=== PATIENT | female | born 1985 | race Caucasian/White ===

== ENCOUNTER 2024-04-07 10:50 | Outpatient (OUT) | payer OTHER, SELFPAY ==
--- NOTE | 2024-04-07 | XR_ITS ---
[facility] [id number] Patient Name: ISAAC BRITO MRN: [id number] date: 1985 Sex: F Assigned Patient Location: Current Patient Location: Accession/Order Number: [id number] Exam Date: 04/07/2024 11:36 Report Date: 04/12/2024 12:04 At the request of: OSCAR CISSE Procedure: XR foot RT min 3V PROCEDURE: XR foot RT min 3V HISTORY: RIGHT FOOT PAIN [; lump on bottom of foot; calcaneal pain COMPARISON: None. FINDINGS: BONES: Small calcaneal plantar spur and small degenerative enthesophyte at Achilles tendon insertion into the calcaneus. No fracture, acute abnormality, or significant arthropathy. SOFT TISSUES:No visible soft tissue swelling. EFFUSION:None visible. OTHER: Negative. XR/XR foot RT min 3V IMPRESSION: 1. Mild degenerative enthesopathic spurring of the calcaneus. Otherwise unremarkable foot. Electronically authenticated by: FORTUNATO PETTIT Date: 04/12/2024 12:04
== END 2024-04-07 10:51 | disposition home or self-care (01) ==
PROVIDERS: Visit Provider Podiatrist Foot & Ankle Surgery
DX: M79.671 Pain in right foot (principal); M77.31 Calcaneal spur, right foot
CPT/HCPCS: 73630

== ENCOUNTER 2024-04-19 14:25 | Outpatient (OUT) | payer OTHER, SELFPAY ==
--- NOTE | 2024-04-19 | MR_ITS ---
[facility] [id number] Patient Name: ISAAC BRITO MRN: [id number] date: 1985 Sex: F Assigned Patient Location: MRI Current Patient Location: Accession/Order Number: [id number] Exam Date: 04/19/2024 15:12 Report Date: 04/22/2024 08:42 At the request of: LAXMI BARAJAS Procedure: MR foot RT wo/w con EXAM: MR foot RT wo/w con REASON FOR EXAM: NEOPLASM UNKNOWN ORIGIN, SOFT TISSUE MASS. TECHNIQUE: Multiplanar, multisequence imaging of the right foot was performed without contrast COMPARISON: Radiographs 04/07/2024. FINDINGS: Along the plantar aspect of the midfoot at the palpable area concern, there is focal subcutaneous or fascial mass, which measures 0.9 x 1.2 cm. There does appear to be some heterogeneous enhancement. This appears to be arising from the plantar fascia and potentially reflects focal fibromatosis. No other similar-appearing lesion identified. No other abnormal enhancement is evident. The bone marrow signal is without fracture or osteonecrosis. The midfoot is congruent. Lisfranc ligament is intact. The visualized ankle tendons are without acute abnormality. No evidence of acute ligamentous injury. Mild second intermetatarsal web space bursitis is present. A discrete neuroma is not evident. MR/MR foot RT wo/w con IMPRESSION: 1. 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 2. No acute osseous, ligamentous or tendinous injury identified. Electronically authenticated by: JUDY ARREOLA Date: 04/22/2024 08:42
--- OUTSIDE RECORDS SUMMARY | 2024-04-19 14:29 | XMS_ITS | CCD ---
Author Organization [facility] Care Team Providers Care Suspender Cutter Name Role Phone Bryanna Zarate Primary Care Physician [phone] DO Farooq Jones Attending Provider Nayely Davila Unavailable Pamella Stallings Unavailable Gabo Hooper Unavailable LOGAN ROSALES Attending Unavailable LOGAN ROSALES Referring Unavailable Farooq Jones Attending Unavailable Farooq Jones Admitting Unavailable NO FAMILY, PHYSICIAN Primary Care Unavailable Gabo Hooper Admitting Unavailable Katina Shaw Primary Care Unavailable Gabo Hooper Attending Unavailable Allergies Allergy Classification Reported Allergen(s) Allergy Type Date of Onset Reaction(s) Facility (12 sources) Amoxicillin; Translations: [amoxicillin] Drug Allergy 4 Eruption of skin (disorder), hives [facility] (12 sources) Cephalexin; Translations: [cephalexin] Drug Allergy 4 Eruption of skin (disorder), rash [facility] (1 source) Amoxicillin Drug Allergy 4 [facility] (1 source) Cephalexin Drug Allergy 4 [facility] Medications Current Medications Medication Drug Class(es) Dates Sig (Normalized) Sig (Original) 0.5 ML tirzepatide 5 MG/ML Auto-Injector [Mounjaro] (3 sources) Mounjaro 2.5 MG/0.5ML as directed Subcutaneous weekly for 28 days Active escitalopram 10 mg oral tablet (1 source) Serotonin Reuptake Inhibitor Start: 08-08-2022 escitalopram 10 mg Tab Refills(s) 0 Start Date: 08/08/22 Status: Ordered 24 hr metFORMIN hydrochloride 500 mg extended release oral tablet (11 sources) Biguanide Start: 12-22-2023 End: 02-24-2024 take 1000 mg by mouth once daily Metformin Active 1000 MG PO Daily 60 February 24, 2024 4:09pm Start: 08-12-2023 take 2 tablets by mo [facility] every twenty-four hours metFORMIN HCl ER 500 MG 2 tablets Orally Once a day for 30 days Jul, Active Start: 08-12-2023 [facility], then take 1 tablet by mouth every week, then take 2 tablets by mouth twice daily metFORMIN HCl ER 500 MG 2 tablet twice daily Orally twice daily for 30 days take 1 tablet daily for 1 week then increase by 1 tablet per week until reach maintenance of 2 tabs twice daily. hold escalation for any tolerability issues Jul, Active [facility] Medication (1 source) Start: 04-13-2017 [facility] Medication Start Date: 04/13/17 Status: Ordered omeprazole 20 mg delayed release oral capsule (1 source) Proton Pump Inhibitor Start: 04-13-2017 take 1 capsule by mouth once daily omeprazole 20 mg Cap-DR = 1 cap(s), Oral, Daily, # 30 cap(s), Refills(s) 0 Start Date: 04/13/17 Status: Ordered phentermine hydrochloride 37.5 mg oral tablet (4 sources) Sympathomimetic Amine Anorectic Start: 02-24-2024 take 18.75 mg by mouth once daily Phentermine Active 18.75 MG PO Daily February 24, 2024 4:26pm Start: 12-23-2023 End: 02-24-2024 take 37.5 mg by mouth once daily Phentermine Discontinued 37.5 MG PO Daily December 23, 2023 3:02pm February 24, 2024 4:28pm Start: 12-22-2023 End: 12-23-2023 take 0.5-1 tablets by mouth once daily Phentermine Discontinued 0 PO Daily December 22, 2023 1:00am December 23, 2023 3:02pm 1/2 to 1 tablet orally daily; Start: 11-24-2023 take 0.5-1 tablets b y mouth once daily Phentermine HCl 37.5 MG 1/2-1 tablet Orally Once a day for 30 days Oct, Active polymyxin b [id number] unt/ml / trimethoprim 1 mg/ml ophthalmic solution (1 source) Dihydrofolate Reductase Inhibitor Antibacterial, Polymyxin-class Antibacterial Start: 08-08-2022 End: 08-15-2022 Polytrim ophthalmic solution 1 drop(s), OPTH, [id number] for 7 day(s), 10 mL, Refill(s) 0, to left eye, [employer] #37, 162, cm, 08/08/22 11:10:00 EDT, Height/Length Dosing, 76.4, kg, 08/08/22 11:09:00 EDT, Weight Dosing Start Date: 08/08/22 Stop Date: 08/15/22 Status: Ordered Rhodiola (9 sources) Rhodiola 250mg q d Active 0.25 mg, 0.5 mg dose 1.5 ml semaglutide 1.34 mg/ml pen injector (1 source) Start: 08-08-2022 Ozempic 2 mg/1 .5 mL (0.25 mg or 0.5 mg dose) subcutaneous solution Refill(s) 0 Start Date: 08/08/22 Status: Ordered Semaglutide Sodium 0.3 mg/ 0.25 mL 0.25 mL (1 source) Start: 09-10-2023 Semaglutide So dium 0.3 mg/ 0.25 mL 0.25 mL 0.25 mL Injection Once a week for 28 days Aug, Active Semaglutide Sodium 0.6 mg/ 0.5 mL 0.5 mL (4 sources) Start: 09-29-2023 Semaglutide So dium 0.6 mg/ 0.5 mL 0.5 mL 0.5 mL Injection 7 days Sep, Active Semaglutide Sodium 1.2 mg/ 0.33 mL 0.33 mL (3 sources) Start: 10-13-2023 Semaglutide So dium 1.2 mg/ 0.33 mL 0.33 mL 0.33 mL Injection Once for 7 days After finished with semaglutide 0.6 mg. Sep, Active Completed/Discontinued Medications Medication Drug Class(es) Dates Sig (Normalized) Sig (Original) fluticasone propionate 0.05 mg/actuat metered dose nasal spray (1 source) Corticosteroid Start: 10-03-2014 take 1 spray(s) nasal route twice daily Flonase 50 MCG/ACT 1 spray in each nostril Nasally BID for 10 days Sep, Not-Taking Semaglutide Base (1 source) Start: 12-22-2023 End: 12-23-2023 inject 1 mL by subcutaneous injection every week Semaglutide Base Discontinued 0.33 ML SUBCUT every week 1.32 December 22, 2023 1:00am December 23, 2023 2:40pm [facility] Pre-filled Syringes using Semaglutide Base. Dispense 1.32 mL = (Four 0.33 mL pre-filled syringes) Problems Active Problems Problem Classification Problem Date Documented Da te Episodic/Chronic Anxiety disorders (11 sources) Mixed anxiety and depressive disorder; Translations: [Other specified anxiety disorders] Chronic Diabetes mellitus without complication (7 sources) Other abnormal glucose; Translations: [Prediabetes] Episodic Esophageal disorders (4 sources) Gastroesophageal reflux disease; Translations: [Gastro-esophageal reflux disease without esophagitis] Chronic Inflammation; infection of eye (except that caused by tuberculosis or sexually transmitteddisease) (1 source) Acute conjunctivitis of left eye; Translations: [Unspecified acute conjunctivitis, left eye] Onset: Episodic Mood disorders (1 source) Depressive disorder; Translations: [Depression] 12-23-2023 Chronic Other gastrointestinal disorders (1 source) Heartburn Episodic Other nutritional; endocrine; and metabolic disorders (9 sources) Obesity; Translations: [Obesity, unspecified] Chronic Other nutritional; endocrine; and metabolic disorders (10 sources) Obese class II; Translations: [Body mass index (BMI) 35.0-35.9, adult] Chronic Other nutritional; endocrine; and metabolic disorders (6 sources) Obesity, unspecified; Translations: [Obesity, unspecified] Chronic Other nutritional; endocrine; and metabolic disorders (1 source) Body mass index (BMI) 35.0-35.9, adult Chronic Other nutritional; endocrine; and metabolic disorders (7 sources) Morbid obesity; Translations: [Morbid (severe) obesity due to excess calories] Chronic Other nutritional; endocrine; and metabolic disorders (1 source) Morbid (severe) obesity due to excess calories Chronic Other nutritional; endocrine; and metabolic disorders (4 sources) Lipoprotein deficiency disorder; 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 Other nutritional; endocrine; and metabolic disorders (1 source) Body mass index (BMI) 33.0-33.9, adult Chronic Other nutritional; endocrine; and metabolic disorders (1 source) High density lipoprotein deficiency ; Translations: [Lipoprotein deficiency] 12-23-2023 Chronic Other nutritional; endocrine; and metabolic disorders (1 source) Obese class I; Translations: [Obesity, unspecified] 12-23-2023 Chronic Other nutritional; endocrine; and metabolic disorders (1 source) Lipoprotein deficiency; Translations: [Lipoprotein deficiencies] 02-24-2024 Chronic Other nutritional; endocrine; and metabolic disorders (1 source) Overweight in adulthood with body mass index of 25 or more but less than 30; Translations: [Body mass index (BMI) 29.0-29.9, adult] Onset: 2 Episodic Residual codes; unclassified (1 source) H/O: endocrine disorder; Translations: [Personal history of other specified conditions] 12-23-2023 Episodic Substance-related disorders (1 source) Smoker 04-13-2017 Chronic Comment on above: Added secondary to d ocumentation in Social History. Past or Other Problems Problem Classification Problem Date Documented Da te Episodic/Chronic Administrative/social admission (1 source) Dietary counseling and surveillance; Translations: [Dietary counseling and surveillance] Onset: 11-24-2023 Episodic Genitourinary symptoms and ill-defined conditions (1 source) Urgency of urination; Translations: [Urgency of urination] Onset: 05-16-2023 Episodic Unclassified (1 source) None (qualifier value) 04-13-2017 Unclassified (1 source) Metabolic syndrome E88.810 Results Test Name Value Interpretation Reference Range Facility A1C HEMOGLOBINon 08-12-2023 HbA1c (Bld) [Mass fraction] 5.7 % [facility] Other HbA1c (Bld) [Mass fraction]o n 08-12-2023 A1C HEMOGLOBIN [facility] Other Urine Cultureon 05-16-2023 Bacteria identified Cx Nom (U) No Growth 2 Days PERFORMED BY: [facility] [address] [place] [address] PATHOLOGIST SLATE SPLITTER GRABIEL FOLEY M.D. Normal [facility] Comment on above: Performed By: #### C UU #### [place] [id number] [facility] Coding Summary.on 04-03-2022 Coding Summary. [id number] Gh0bWw+PGhlYWQ+PE1FV JOiZ91frBJuuU9XX0wGI W0CQKZGENMDSU6FHU9ve SO1EExkC0MtemYu XdtjuJIuJR50LLn1LEX2 pTxbFKeiqP2huREtK5u3 HiAlKV24cD47NQkaFLCm EaB5OsSwwtpuiOVg W7meCmYkkRUtUbk+PHRh YmxlIHdpZHRoPScxMDAl FlFitHpaJG5eAn1iCGFn LWNvbGxhcHNlOiBj k1auXABbZPatFW6ifZkd Q6ElbMQ3MRPfy6e6Co49 dHI+GRSlOZW3cRbtKCvc h548NwLun5vkRNB7 tTZjZCxfQLQ0P97el5G4 AVHlGNMjWGG6sYH4kC4d jYwynstfY8UrrFByKzY8 EPX9iCLbcT1mbHvb unuslE7dLaq+J90BSP4I GCSWNJ6YRuk1B2ZbVecv dHI+KY24QPEpMK86xPEj mYFmj5uwlSo2NpUx OSTxLWW5cXlrRIlye4Tu PAJoK11dzUJms3P7DNDd wOzcvXIwMpIlmSP7iP0e XZzzokpgt6ezuhyq Ichir6zokk24vK73E90l AKaxMECsMLH2ELKvVRDm mYptzu0nlE0iPm6+IDxj p3ibm7wbqDk1OnYe YRQrbvJyePdhTZR6c0Sg Tv62I1OckLslf7KkGak1 wm69mYDzu8I0kAJ8PXuy YMNrvT3yXGlvJlM8 OMOgVsVxxU21oAXxNCdg Fu1rvZogoJpnAG1tAQRd tlvvFZIbiG8kFBGpbLEu bGehNT9eEYHtxifq i579CcFvLPB6IWYsbHPt N8InqC2aBrSjSEWkTGBb Q0VhpXTrLVfpB928FFgi WkB1RMLjzqQjW8Vh ESQqiLwwFfU6k0P8Jf1M e0UjkvbcEWE8JCsqZYI0 IwO3LxGpNlA1D9GqZwr4 AWVepGavPZ5mT8Tm OIUkrinvwdmdaNL4OXLp MDZcvX66iMLqXBoeAy9y y4D5a396MTMyMCOwyM77 Rb0nbHdzTZLqiRAN jI7wpvacm2bmytkhRoFj RUMcOAp4YGn3HVDbxVmd XxHpSZP3CmA5WXX6yJEa wO7ljMgytnngaB8k Oyc+U24fdA9rURU6VQA2 ofjzUIWsevVhRP70HX81 G9DjYneavFNaeMA+PGRp mvMfjAbbCM0hSwHb h7mdj9AxXPofO7FcYWBp BOwfXei2CBGqDAF6fFM6 uA0fTJAnFAudr9S5cPY4 G9FxhxWvzm1uh6ya VKStNIbmY83gxPMwp4X9 GFSjaQK8JEEtpAerApFx zY09Lyf+JAOgaNnnc7Dm Dfyvv0ndd1myiWq0 IjMwJSIgdmFsaWduPSJ0 z3IdRs02P62vHHlfOVOs UZSwVRQpXGJndWnmoj1n pW9dJj7+PGNvbCB3 uWF4oO1bSXGlHkP6EIjm X948LbWwwOWnTrptg2vl g7uicDh2IsCrCATjzwHh vTymJDW8j9FkCy15 G67eWKzlOJBdNOMbVMYi CMTvgBfjxb7rhN0aHb2+ SJ8xv3kbxq89wB09gHR+ GVEbAOX6iYfhGDvu NBMouM8pJTkiSzY7YBLz PqVdrH23zHZsUPtrYx0h kXzbeXooPR3uNOOnwaub e840OqXxx6vdLZIg oZPpTHnaMED5M79dd4T2 SFHrVSOhQUS5kWL0cF3n bGlnbjogbGVmdDsgdmVy tMybJVmjRLffP207 IHRvcDsnPlBhdGllbnQg EnNeALj8R3AuUki1OOGg uGwgTX2stXMbWFqxQk5d wHnohAhnNX3wFCEd fpjcl762AiDvs1zxLPYy yZLoNHocEYT0N50fe1C4 IMTyWCOiAEI7uFJ9aS4y bGlnbjogbGVmdDsg fjGfxAdfAVaxZTgyE144 IHRvcDsnPkJpcnRoIERh oGC9QI01ZV54hDOcj2H7 rCE2I4QqSGLpinzn fchinVA0LJUsRZOpqZ94 Fb6bsDlyFz3sFTLcJVQ1 VYRnuXIdT5RqoN6kYqYs MXDcQPTuI6RvwXYj VWdwJ175PQjrQkX0HAZy mxRnD4IvSFZezCphQoF4 r1T5Ze0UR6W9PX05RJ36 oFGir5U9lMQ6P2Go VYJlhjxdvjajuOI9OVEs HAEhiJ28Fn1weCkuMf6t UBEiRGL7VYEqrBTkU5Ng eJ3eCaAvLZHnIYOj I0VlmHWeAHtmY409VEes SdU3CLDpeyLpW5HsEWIp yPaoApZ2l7T0Zx2FSUx5 RO33ZW39tKVlh7V6 cRM7J7BuLYSewmflragw dSX3PUTeVFNxdY00Cz7s rXlwZu8nMVOxAAL9ORJr mEHhA1ErcL2gOzEq SKEdKEWwC5UvsJTlBFqy T886TFtyKcF8YCZoupAb B7HzYYSkkVjvKcX8p8H9 Yi8JDVTsLC90GOS9 iVM5GN30UG66P6EqGutz dGFibGU+PHRhYmxlIHdp ZHRoPScxMDAlJyBzdHls TM6jPe7pJEIgIDIc aHtlmGSmWlOxs1cyKQHt KXvaIQ4zyCllR4KyuNT2 DSVux6n2Vo48W43uO0Zr dXA+YAFzfRX7dVN8 xD5hLfAqKxJ9FWcyP981 PlJniRJaDoigf9qrt0sf gTs7YsC8ERWnmqHvdRmh PFM7e1DyAr92K49q IHdpZHRoPSIxNSUiIHZh hCovvv3puN5iXn2+PGNv mEX7kTN0pT7xJsQxDsY3 XTfgF633LzKrgZMb Lfliw3hne5inmOt6YzBu ERMwvsJakFvmQEP4c4Pl Fw43Z9XwuQrdb6YrItt8 jy73aPRnf7D6gHY7 M2NvFONrbbgoxOAxeLtj VF7fCYYjqlscGNEgiB0u BKGjI0s3MwNfNoB2JQrf Q2WmkrG1PYCqhSPr RCbiBVT1A27bk3L6KUGk GJLgNDC7aFI4pP8lxPpa bjogbGVmdDsgdmVydGlj GVxqEZhgB811VEHb lBhaQDJulF5yRKYvvKJt cMrsFS6cTKAnztkhArCJ W4UCKyViDW1HCmqEYHq7 W6ZlPpf3UJVhdEvt FM2jyUBjBZzqWk0miFqe zTzfTP5nIOUrycybMXTs eY3iGUQcqIZoyBtbXC1g EZChplbtw302HmFj NIF8SBHfvUJvO7DmiO5q NkYmGYWzAVVwK9IpbPFq JTseG718RJcjSjA8QOEd nwChY8WpLSBxiUsz HiB2l1L5Jl1sFH7nCe0c HSx9FL00JV57wQAlg0P3 lAH2O1QpCXXwktskmppf aPO9ZCPyHPEccO40 xIJuSFkhYg3ae4G5t553 FECjVLOdxH08Gd3lbGvd NJLwsWETrT4xdthfr8xj cjogIzAwMDAwMDt0 QSg4THUbzYsnSsYfCDY7 WkO4SZA9eTQjoH4vvEde qaebdV7rLjk+MzcgWWVh bhP7Q7PpPgj6HUZq nAxwKS1ylSDcXHioPq3n lYwhaKyfZO0bYATjonen BFJtlT7qRRBagAGqeBoh HG0zEHKpxdyuh931 XrHoYJT0USYkiKYbI8He fW9oErMwWMLeQYJlT4Ql eKKdGSpjM842QYcpVoE0 OSHazoZmQ1JoSLSu gWrjIcP9a5N5Wm0XRS4u gFY0V7DdEuu0OSSynFwr FW6xbGBgBGosVq1oiUxy xTavZH4pCBZlsvhq IBYfhL2vIEJsnHFdpDii BJ6pPLXluvahd217BpDh YCB6IQTviZUcR5BamE0m LfSmQFJcYDGoL1Pi dHRpFRlbY725YOkuQqR8 JKXiruGzU8DiNUNuiLxw NjE4a8K1Vv5JqRNqMUSk EX40NB05NA57N4Pn PjwvdGFibGU+PHRhYmxl IHdpZHRoPScxMDAlJyBz vSmjCX1ePy4uLEOiISTh kJzhdUBfRzMlw3pg OXKxKZxrJY8shHejF3Xf iCB5TPBvp9q4Mq35K46t K9HkqIU+BDZwbCJ2hTM3 uO0oAqGtVxL5OWex V363ZbEyfTMtIbygw5ny i7xipIi7OxUgCPDzpjNk mWtdSCG1j4QsTi04A57b IHdpZHRoPSIyMCUi XPYmiHqmja7xkR1jPn2+ JIDlaRW0vUY8nG6lSsFf BqD3VDqhE066XuVriGHs VbdpW90fU3EkoVS+ WUEzOqn5HZVxpZxjMI8y gEWlSCgrBi3dPFD8LlLk VyBtKXtjC3VvTGBeanvx pqkivQG0WNSnLOWb fM57Bs4imKwpSn5hAJWv ZIC9UPKulQJtW5DynC2j UiCzHPQzWIBnT9JqiMBu YFcbU286ZLupYxV7 LPWzkbBxS0QuKUJvoMlf EpR4q9R9Vz7BiUsrcZPg YQ7pTcYpFFk7A1XdDqg9 MWHajJgcZF8wjQEw XEvjHn9gyTfrjSsyDH3w CCAqyaltg305KxImj3nl ACWbmCDmEDzaPXY4C07g o7E6WOPdHCFgEEP3 kGB4rQ8ubQndhmzjrAJg dDsgdmVydGljYWwtYWxp J884GIVawDqnFqCNAgd4 V0ZeRyi7IIHhqBng JU0nqXWsOBasKz0ydLyv nOwvKO5uVQKorilhh328 HsAmm1icFNHbeWPiIOhm XAI2F22be3Y7EBCx LPSpADH7mAI5wU1shGui bjogbGVmdDsgdmVydGlj WXrlRVfdX744HIFwsVbn Sm9DIhv3N2FnVns2 GIRxtCzcZS7ziNNvHWsr Wd5rpCvdjPreMM0qFJXt jljcx952IjGem3bhVEHf zUBiMBuzWXA5I11z e9Q2TCRvANQnDJH2oJX6 jG1aoVcymkggiTJfdJrf fwLjeMghSDyuMJfgG417 IHRvcDsnPlBheWVy OjwvdGQ+MZ13co69Q4Di ZijtNhy4FYBbUAQ3eAJ9 kW7bPSVxMPhbq2H7fSH7 T5DzvpIaxz0gs6ju YXBz (more content not included)... Normal [facility] DHEAon 03-29-2022 DHEA [Mass/Vol] 143 ng/dL Invalid Interpretation Code [facility] Comment on above: Result Comment: This test was developed and its performance characteristics determined by [facility]. It has not been cleared or approved by the Food and Drug Administration. Age 1 - 5 years 0 - 67 6 - 7 years 0 - 110 8 - 10 years 0 - 185 11 - 12 years 0 - 201 13 - 14 years 0 - 318 15 - 16 years 39 - 481 17 - 19 years 40 - 491 >19 years 31 - 70 Performed at: [facility] [id number] MD Billy Dacosta Performed By: #### 1 [id number] #### [facility] [address] [place] [address] Testosterone F&Ton 2 Testosterone [Mass/Vol] 19 ng/dL Invalid Interpretation Code 60 [facility] Comment on above: Performed By: #### 1 [id number] #### [facility] [address] [place] [address] Testosterone Free [Mass/Vol] 1.2 pg/mL Invalid Interpretation Code 0.0-4.2 [facility] Comment on above: Result Comment: Perf ormed at: [facility] [id number] PhD Cristiane Orellana Performed at: [facility] [id number] MD Billy Sanjai Performed By: #### 1 [id number] #### [facility] [address] [place] [address] Consent for Treatmenton 02-25 Consent for Treatment [id number] #1.00CD:127 Normal [facility] Physician Orderon 03-21-2022 Physician Order [id number] 1#1.00CD:127 Normal [facility] TSH With T4fr Reflexon 03-21 TSH Qn 2.37 m[IU]/L Normal 0.34-5.60 [facility] Comment on above: Performed By: #### 1 [id number] #### [facility] [address] [place] [address] Physician Referralon 022 Physician Referral [id number] #1.00CD:127 Normal [facility] Vital Signs Date Time Vital Sign Value Performing Clinician Facility 02-24-2024 16:20-0400 Diastolic blood pressure 94 mm[Hg] [facility] 02-24-2024 16:20-0400 Systolic blood pressure 142 mm[Hg] [facility] 02-24-2024 15:36-0400 Body height 163.83 cm [facility] 02-24-2024 15:36-0400 Body mass index (BMI) [Ratio] 30.9 kg/m2 [facility] 02-24-2024 15:36-0400 Body weight 83.12 kg [facility] 02-24-2024 15:36-0400 Heart rate 82 /min [facility] 02-24-2024 15:36-0400 Respiratory rate 16 /min [facility] 02-24-2024 15:36-0400 SaO2% (BldA) [Mass fraction] 98 % [facility] 11-24-2023 14:30-0500 Body height 163.83 cm Gabo Hooper Other [facility] Other 11-24-2023 14:30-0500 Body mass index (BMI) [Ratio] 32.28 kg/m2 Gabo Hooper Other [facility] Other 11-24-2023 14:30-0500 Body weight 86.64 kg Gabo Hooper Other [employer] Other 11-24-2023 14:30-0500 Diastolic blood pressure 84 mm[Hg] Gabo Hooper Other [facility] Other 11-24-2023 14:30-0500 Respiratory rate 18 /min Gabo Hooper Other [employer] Other 11-24-2023 14:30-0500 SaO2% (BldA) [Mass fraction] 96 % Gabo Hooper Other [facility] Other 11-24-2023 14:30-0500 Systolic blood pressure 130 mm[Hg] Gabo Hooper Other [facility] Other 10-13-2023 15:15-0500 Body height 163.83 cm Gabo Hooper Other [facility] Other 10-13-2023 15:15-0500 Body mass index (BMI) [Ratio] 32.34 kg/m2 Gabo Urbinadiff Other [employer] Other 10-13-2023 15:15-0500 Body weight 86.82 kg Gabo Urbinadiff Other [facility] Other 10-13-2023 15:15-0500 Diastolic blood pressure 80 mm[Hg] Gabo Rufus Other [facility] Other 10-13-2023 15:15-0500 Respiratory rate 18 /min Gabo Urbinadiff Other [employer] Other 10-13-2023 15:15-0500 SaO2% (BldA) [Mass fraction] 98 % Gabo Urbinadiff Other [facility] Other 10-13-2023 15:15-0500 Systolic blood pressure 132 mm[Hg] Gabo Urbinadiff Other [employer] [employer] Other 10-07-2023 11:15-0500 Body height 163.83 cm Nayely Fitt Other [employer] Other 10-07-2023 11:15-0500 Body mass index (BMI) [Ratio] 32.8 kg/m2 Nayely Fitt Other [employer] Other 10-07-2023 11:15-0500 Body weight 88.04 kg Nayely Fitt Other [facility] Other 09-08-2023 14:45-0500 Body height 163.83 cm Gabodaniel Hooper Other [employer] [employer] Other 09-08-2023 14:45-0500 Body mass index (BMI) [Ratio] 33.15 kg/m2 Gabo Hooper Other [facility] Other 09-08-2023 14:45-0500 Body weight 89 kg Gabo Hooper Other [employer] Other 09-08-2023 14:45-0500 Diastolic blood pressure 81 mm[Hg] Gabo Hooper Other [facility] Other 09-08-2023 14:45-0500 Respiratory rate 18 /min Gabo Hooper Other [employer] Other 09-08-2023 14:45-0500 SaO2% (BldA) [Mass fraction] 98 % Gabo Hooper Other [facility] Other 09-08-2023 14:45-0500 Systolic blood pressure 126 mm[Hg] Gabo Hooper Other [facility] Other 08-12-2023 15:15-0400 Body height 163.83 cm Pamella Scally Other [facility] Other 08-12-2023 15:15-0400 Body mass index (BMI) [Ratio] 32.7 kg/m2 Pamella Scally Other [employer] Other 08-12-2023 15:15-0400 Body weight 87.77 kg Pamella Scally Other [facility] Other 08-12-2023 15:15-0400 Diastolic blood pressure 90 mm[Hg] Pamella Scally Other [employer] Other 08-12-2023 15:15-0400 Respiratory rate 18 /min Pamella Scally Other [facility] Other 08-12-2023 15:15-0400 SaO2% (BldA) [Mass fraction] 98 % Pamella Scally Other [facility] Other 08-12-2023 15:15-0400 Systolic blood pressure 135 mm[Hg] Pamella Stallings Other [employer] Other 08-08-2022 11:06-0400 Blood Pressure Location [facility]ah [facility] 08-08-2022 11:06-0400 Body temperature 97.88 [degF] Marah [facility] 08-08-2022 11:06-0400 Diastolic blood pressure 80 mm[Hg] Marah [facility] 08-08-2022 11:06-0400 Heart rate 68 /min Marah VINESLEY [facility] 08-08-2022 11:06-0400 SaO2% (BldA) [Mass fraction] 97 % [facility] 08-08-2022 11:06-0400 Systolic blood pressure 134 mm[Hg] [facility] Encounters Encounter Date Encounter Type Care Provider Facility Start: 03-29-2024 End: 03-29-2024 ambulatory LOGAN ROSALES Not Available Start: 02-24-2024 End: 02-24-2024 Patient encounter procedure [facility] Work Phone: Start: 11-24-2023 End: 11-24-2023 ambulatory Gabo Hooper [place] [facility] Other Start: 11-24-2023 Follow-up encounter [facility] Start: 10-13-2023 End: 10-13-2023 ambulatory Gabo Hooper Other [employer] Other Start: 10-13-2023 Follow-up encounter [facility] Start: 10-13-2023 Telephone encounter [facility] Start: 10-07-2023 ([facility]) [facility] Init ial Provider Nayely Sunildeepak [facility] Start: 10-07-2023 End: 10-07-2023 ambulatory Nayely Sunildeepak Other [employer] Other Start: 09-29-2023 End: 09-29-2023 ambulatory Gabo Hooper Other [employer] Other Start: 09-29-2023 Telephone encounter [facility] Start: 09-09-2023 End: 09-09-2023 ambulatory Gabo Hooper Other [employer] Other Start: 09-09-2023 Nursing evaluation o f patient and report Gabo Hooper [facility] Start: 09-09-2023 Telephone encounter [facility] Start: 09-08-2023 End: 09-08-2023 ambulatory Gabo Hooper Other [employer] Other Start: 09-08-2023 Follow-up encounter [facility] Start: 08-26-2023 End: 08-26-2023 ambulatory Nayelydemetria Davila Other [employer] Other Start: 08-26-2023 IBT FOR OBESITY GROU P 2-10 30M Nayely Sunildeepak [facility] Start: 08-12-2023 End: 08-12-2023 ambulatory Pamella Stallings Other [employer] Other Start: 08-12-2023 Nutrition therapy Pamella Stallings [facility] Start: 05-16-2023 End: 05-16-2023 ambulatory Farooq Jones [facility] Work Phone: Start: 05-16-2023 End: 05-16-2023 Departed Referred DO Farooq Jones Work Phone: [facility] Work Phone: Start: 08-08-2022 End: 08-08-2022 Patient encounter procedure [facility] Procedures Date Procedure Procedure Detail Performing Clinician None (qualifier value) Tamiko [facility] Plan of Treatment Date Care Activity Detail Author Start: 05-16-2023 Bacteria identified in Urine by Culture Urine Culture [facility] Immunizations Immunization Date Immunization Notes Care Provider Fa cility NEGATED: Highlighted row has not occurred!08-08-2022 influenza virus vaccine, unspecified formulation [facility] NEGATED: Highlighted row has not occurred!08-08-2022 SARS-CoV-2 mRNA (tozinameran 5y-11y) vaccine [facility] Payers Date Payer Category Payer Self-pay 2022 Unknown [id number] 1985 Unknown [id number] Medicaid [id number] Private Health Insurance [facility] [id number] Unknown [id number] Unknown [id number] Social History Date Type Detail Facility Start: 08-08-2022 End: 12-23-2023 Tobacco smoking status Never smoked tobacco (finding) [facility] Tobacco smoking status Never Yusufe [facility] Sex Assigned At Female [facility] Start: 1985 Sex Assigned At Female F [facility] Functional Status Date Assessment Result Facility 08-08-2022 Functional Status N/A [facility] Clinical Notes 08-08-2022 to 02-24-2024 Note Date & Type Note Facility 02-24-2024 Evaluation note Authored February 24, 2024 4:3 5pm Start weight: 193.5 lbs. She is down 10.1 lbs. today with a weight of 183.4 lbs. she is down 6.1 lbs. since last visit on 12/23/2023. Starting Date: 08/12/2023. Semaglutide up to 1.2 mg with only a 2.5 pound weight loss so the medication was stopped. Phentermine start date 11/24/2023. Phentermine start weight 191 pounds, she is down 7.6 lbs. today after 1 month of treatment. 1. Abnormal weight gain. She has a strong family history of obesity and her sister weighs 230 pounds and an aunt and her children. 2. Obesity-she now has a greater than 5% weight loss phentermine 37.5 mg daily. Because her blood pressure is slightly high and to try to see if she could tolerate a lower dose in the long run were going down to the 18.75 mg dose. Previously, her weight was worsening despite starting our program taking 1.2 mg of compounded semaglutide and she had significant heartburn on compounded semaglutide which resolved with stopping the medication. She will continue to treat with long-term lifestyle changes of improved nutrition, increased exercise and activity, stress reduction, adequate sleep and behavioral modification versus short-term dieting. She will continue metformin 1000 mg for diabetic prevention/prediabetes. 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 3. Prediabetes/gestational diabetes with her first yxayu-pfcjx-qdar treatment with long-term healthy lifestyle change, decreased simple sweets and refined starches, increased exercise and activity and long-term weight loss. She was intolerant to compounded semaglutide at 1.2 mg with significant heartburn. We will continue metformin. She needs close long-term follow-up for this condition to prevent diabetes. Monitor fasting blood sugar and A1c. 4. Depression/anxiety-she does admit to some work stress. 5. Low HDL-should be improving. She understands the benefits of making sure she gets cardio in addition to strength training. She will continue to treat with decreasing the simple sweets, added sugars, refined starches and bad fats, increase activity and exercise and achieve long-term weight loss. 6. GERD-treat with antireflux diet and weight loss. Handout given. She notes significant worsening/intolerance with GLP-1. Follow up with me in 6 weeks. New labs needed: Up-to-date. Monitor A1c and FBS with following our program. [facility] Work Phone: [phone]) 276-229701-29-2024 Evaluation note* Encounter Date Diagnosis Assessment Notes Treatment Notes Treatment Clinical Notes Oct, Prediabetes (ICD-10 - R73.09) Oct, Obesity (BMI 30.0-34.9) (ICD-10 - E66.9) Oct, GERD (gastroesophageal reflux disease) (ICD-10 - K21.9) [employer] Other 12-18-2023 Evaluation note* Encounter Date Diagnosis Assessment Notes Treatment Notes Treatment Clinical Notes Sep, Prediabetes (ICD-10 - R73.09) [employer] Other 12-12-2023 Evaluation note* Encounter Date Diagnosis Assessment Notes Treatment Notes Treatment Clinical Notes Sep, Obesity (ICD-10 - E66.9) Sep, BMI 33.0-33.9,adult (ICD-10 - Z68.33) Sep, Other Summary of Visi t: (A) plate method of meal planning; importance of carbs for energy during workouts (B) encouraged increasing carbs slightly (25% of plate) for2 meals before work out (C) focus on non-scale goals such as increased energy, endurance, strength etc Patient set the following goals: - increase carbs slightly day before workouts - continue lean protein and veggies - trial nutrition radha for more detail of macro nutrients [employer] Other 11-14-2023 Evaluation note* Encounter Date Diagnosis Assessment Notes Treatment Notes Treatment Clinical Notes Aug, Morbid (severe) obesity due to excess calories (ICD-10 - E66.01) -----NOTE: Patient has been NPO other than plain water for the last 4 hours. Patient has not exercised for the last 4 hours. Patient has not consumed any caffeine, nutritional supplements, or medications containing Ephedra, MaHuang, Pseudoephedrine, or other decongestants or stimulants such as Adipex for the last 4 hours. Patient has not smoked or used any type of Nicotine products including patches, gum, and vapors for the last hour. Patient has followed all the preparatory guidelines for Calorimeter testing today and understands the results will be discussed with the Tattoo Artist. RESULTS: RMR = 1450 [employer] Other 11-14-2023 Evaluation note* Encounter Date Diagnosis Assessment Notes Treatment Notes Treatment Clinical Notes Aug, Prediabetes (ICD-10 - R73.09) [employer] Other 11-13-2023 Evaluation note* Encounter Date Diagnosis Assessment Notes Treatment Notes Treatment Clinical Notes Aug, Prediabetes (ICD-10 - R73.09) [employer] Other 10-31-2023 Evaluation note* Encounter Date Diagnosis Assessment Notes Treatment Notes Treatment Clinical Notes Jul, Obesity, unspecified classification, unspecified obesity type, unspecified whether serious comorbidity present (ICD-10 - E66.9) Jul, BMI 35.0-35.9,adult (ICD-10 - Z68.35) Jul, Other Summary of Visi t: (A) Presentation of Plate Method discussed (B) Sample meal ideas reviewed (C) exercise recommendations reviewed Patient set the following goals: - patient set personal goal using given handout. [employer] Other 10-17-2023 Evaluation note* Encounter Date Diagnosis Assessment Notes Treatment Notes Treatment Clinical Notes Jul, Prediabetes (ICD-10 - R73.09) Discussed how diabetes II delayed or avoided with lifestyle changes such as, losing weight, being active, improving dietary intake. Discussed the risks for diabetes. Explained that weight loss of 5-10% can have significant impact. Consistent with weight management recommendations, encouraged diet rich in fruits, vegetables, low fat dairy, low in red meat sweets and refined grains. Stay away from soda and fruit juice. Increase activity 30 minutes most days of the week. Jul, Obesity (ICD-10 - E66.9) Plan, purchase and prepare healthy foods. Use shopping list, electronic shopping to curb impulse buying. Stock pantry with healthy foods. Keep fruits and vegetables accessible. Avoid bringing unhealthy foods in to the home. Plan family meals minimally 3 x per week. Decrease screen time. Jul, Anxiety and depression (ICD-10 - F41.8) Consideration mental health to assure proper goal setting and strategies for success Jul, Metabolic syndrome (ICD-10 - E88.810) Jul, Heartburn (ICD-10 - R12) May show significant improvement with weight loss Jul, Other I have spent 60 minutes with this patient and over 50% of the visit was counseling done by myself, Deena TRUONG. [employer] Other 10-13-2022 Hospital Discharge instructions Patient Education 08/08/2022 11:49:15 BMI for Adults BMI for Adults Body mass index (BMI) is a number that is calculated from a person's weight and height. BMI may help to estimate how much of a person's weight is composed of fat. BMI can help identify those who may be at higher risk for certain medical problems. How is BMI used with adults? BMI is used as a screening tool to identify possible weight problems. It is used to check whether aperson is obese, overweight, healthy weight, or underweight. How is BMI calculated? BMI measures your weight and compares it to your height. This can be done either in [place] ([place] or metric measurements. Note that charts are available to help you find your BMI quickly and easily without having to do these calculations yourself. To calculate your BMI in [place] measurements, your health care provider will: 1.Measure your weight in pounds (lb). 2.Multiply the number of pounds by 703. For example, for a person who weighs 180 lb, multiply that number by 703, which equals 126,540. 3.Measure your height in inches (in). Then multiply that number by itself to get a measurement called inches squared. For example, for a person who is 70 in tall, the inches squared measurement is 70 in x 70 in, which equals 4900 inches squared. 4.Divide the total from Step 2 (number of lb x 703) by the total from Step 3 (inches squared): 126,540 4900 = 25.8. This is your BMI. To calculate your BMI in metric measurements, your health care provider will: 1.Measure your weight in kilograms (kg). 2.Measure your height in meters (m). Then multiply that number by itself to get a measurement called meters squared. For example, for a person who is 1.75 m tall, the meters squared measurement is 1.75 m x 1.75 m, which is equal to 3.1 meters squared. 3.Divide the number of kilograms (your weight) by the meters squared number. In this example: 70 3.1 = 22.6. This is your BMI. How is BMI interpreted? To interpret your results, your health care provider will use BMI charts to identify whether you are underweight, normal weight, overweight, or obese. The following guidelines will be used: Underweight: BMI less than 18.5. Normal weight: BMI between 18.5 and 24.9. Overweight: BMI between 25 and 29.9. Obese: BMI of 30 and above. Please note: Weight includes both fat and muscle, so someone with a muscular build, such as an athlete, may havea BMI that is higher than 24.9. In cases like these, BMI is not an accurate measure of body fat. To determine if excess body fat is the cause of a BMI of 25 or higher, further assessments may needto be done by a health care provider. BMI is usually interpreted in the same way for men and women. Why is BMI a useful tool? BMI is useful in two ways: Identifying a weight problem that may be related to a medical condition, or that may increase the risk for medical problems. Promoting lifestyle and diet changes in order to reach a healthy weight. Summary Body mass index (BMI) is a number that is calculated from a person's weight and height. BMI may help to estimate how much of a person's weight is composed of fat. BMI can help identify those who may be at higher risk for certain medical problems. BMI can be measured using Nauruan measurements or metric measurements. To interpret your results, your health care provider will use BMI charts to identify whether you are underweight, normal weight, overweight, or obese. This information is not intended to replace advice given to you by your health care provider. Make sure you discuss any questions you have with your health care provider. Document Released: 06/24/2005 Document Revised: 09/25/2018 Document Reviewed: 08/26/2018 [employer] Patient Education 2020 [employer]. 08/08/2022 11:49:13 Bacterial Conjunctivitis, Adult, Mqyl-xz-Pkrg Bacterial Conjunctivitis, Adult Bacterial conjunctivitis is an infection of your conjunctiva. This is the clear membrane that covers the white part of your eye and the inner part of your eyelid. This infection can make your eye: Red or pink. Itchy. This condition spreads easily from person to person (is contagious) and from one eye to the other eye. What are the causes? This condition is caused by germs (bacteria). You may get the infection if you come into close contact with: ?A person who has the infection. ?Items that have germs on them (are contaminated), such as face towels, contact lens solution, or eye makeup. What increases the risk? You are more likely to get this condition if you: Have contact with people who have the infection. Wear contact lenses. Have a sinus infection. Have had a recent eye injury or surgery. Have a weak body defense system (immune system). Have dry eyes. What are the signs or symptoms? Thick, yellowish discharge from the eye. Tearing or watery eyes. Itchy eyes. Burning feeling in your eyes. Eye redness. Swollen eyelids. Blurred vision. How is this treated? Antibiotic eye drops or ointment. Antibiotic medicine taken by mouth. This is used for infections that do not get better with drops or ointment or that last more than 10 days. Cool, wet cloths placed on the eyes. Artificial tears used 2 6 times a day. Follow these instructions at home: Medicines Take or apply your antibiotic medicine as told by your doctor. Do not stop taking or applying the antibiotic even if you start to feel better. Take or apply qcuj-ihw-bsigerg and prescription medicines only as told by your doctor. Do not touch your eyelid with the eye-drop bottle or the ointment tube. Managing discomfort Wipe any fluid from your eye with a warm, wet washcloth or a cotton ball. Place a clean, cool, wet cloth on your eye. Do this for 10 20 minutes, 3 4 times per day. General instructions Do not wear contacts until the infection is gone. Wear glasses until your doctor says it is okay towear contacts again. Do not wear eye makeup until the infection is gone. Throw away old eye makeup. Change or wash your pillowcase every day. Do not share towels or washcloths. Wash your hands often with soap and water. Use paper towels to dry your hands. Do not touch or rub your eyes. Do not drive or use heavy machinery if your vision is blurred. Contact a doctor if: You have a fever. You do not get better after 10 days. Get help right away if: You have a fever and your symptoms get worse all of a sudden. You have very bad pain when you move your eye. Your face: ?Hurts. ?Is red. ?Is swollen. You have sudden loss of vision. Summary Bacterial conjunctivitis is an infection of your conjunctiva. This infection spreads easily from person to person. Wash your hands often with soap and water. Use paper towels to dry your hands. Take or apply your antibiotic medicine as told by your doctor. Contact a doctor if you have a fever or you do not get better after 10 days. This information is not intended to replace advice given to you by your health care provider. Make sure you discuss any questions you have with your health care provider. Document Released: 07/22/2009 Document Revised: 02/01/2020 Document Reviewed: 05/19/2019 [employer] Patient Education 2020 [employer] Follow Up Care 08/08/2022 09:29:30 With:Bryanna Zarate DO Address:Unknown When: Unknown [facility] Evaluation + Plan note No data available for this section [facility] Evaluation noteNo assessment information available [facility] Work Phone: [facility] [employer] [facility] Other History general Narrative - Reported* Type Description Date Medical History Anxiety Medical History Depression Medical History Gestational diabetes in the past Medical History Gerd Medical History Pre-diabetic Hospitalization History depression 2006 [facility] [employer] Other Progress note No data available for this section [facility] Summary Purpose Family History No Family History Records Found Relationship Condition Age at Onset Recorded Date/T carissa father History of stroke Unknown Heart disease Unknown Not Specified Diabetes mellitus Unknown Advance Directives No Advanced Directives Records Found Advance Directive Response Recorded Date/ Time Advance Directives No May 19 7:37am Chief Complaint and Reason for Visit Reason for Visit GERD (gastroesophage al reflux disease) HDL deficiency Obesity (BMI 30.0-34.9) Prediabetes Additional Source Comments INFORMATION SOURCE (unrecogn ized section and content) DATE CREATED AUTHOR 04/04/2022 [facility] DATE CREATED AUTHOR AUTHOR'S ORGANIZ ATION 03/29/2024 [facility] DATE CREATED AUTHOR AUTHOR'S ORGANIZ ATION 03/30/2024 [facility] Patient Care team informatio n (unrecognized section and content) Team Status: Inactive Member Role Status Dates Farooq Jones DO Attending Provider Active Team Status: Active Member Role Status Dates Katina Shaw Primary Care Provider Active Team Status: Inactive Member Role Status Dates Katina Shaw Primary Care Provider Active Star t: February 24, 2024 End: February 24, 2024 Gabo Hooper MD Attending Provider Active Start: February 24, 2024 End: February 24, 2024 Goals (unrecognized section and content) Goals may be documented in a n alternate section REASON FOR VISIT (unrecogniz ed section and content) WMN f/u.DC Metformin dc'dWM - RD first after classDC refill requestDC Budererresting metabolicInitial WMN, TSH only lab 2021 at [facility] FOR RECORDS PERTAINING TO PATIENTS WHO ARE OR HAVE BEEN ENROLLED IN A CHEMICAL DEPENDENCY/SUBSTANCEABUSE PROGRAM, SOME INFORMATION MAY BE OMITTED. This clinical summary was aggregated from multiple sources. Caution should be exercised in using it in the provision of clinical care. This summary normalizes information from multiple sources, and as a consequence, information in this document may materially change the coding, format and clinical context of patient data. In addition, data may be omitted in some cases. CLINICAL DECISIONS SHOULD BE BASED ON THE PRIMARY CLINICAL RECORDS. [facility] [employer] [facility]. provides no warranty or guarantee of the accuracy or completeness of information in this document.
== END 2024-04-19 14:26 | disposition home or self-care (01) ==
LOC: MRI 14:25
PROVIDERS: Visit Provider Podiatrist Foot & Ankle Surgery
DX: R22.41 Localized swelling, mass and lump, right lower limb (principal)
CPT/HCPCS: 73720; A9575